=== PATIENT | male | born 1940 | race Caucasian/White ===

== ENCOUNTER → 2021-04-09 | Outpatient (CLI) | payer MEDICARE ==
[~2021-04-09] MED LIST: AMLO5 PO; CALCAVITD PO; LISI20 PO; METO25ER PO; METPRE4DP PO; MULVIT PO; Metformin HCl1000 MG PO; Norco 5-325 Ta1 EACH PO; Pravastatin Sod40 MG PO; TORSE20 PO; ULTRA-LIGHT RO1 EACH MC; XARELTO20 MG PO
[2021-04-09 14:01] LABS: Protein, Urine Quantitative <5.0 mg/dL (0.0-11.9)
== END | disposition home or self-care (01) ==
LOC: LAB SHORT 07:30
PROVIDERS: Internal Medicine Nephrology
DX: N18.30 Chronic kidney disease, stage 3 unspecified (principal); D63.1 Anemia in chronic kidney disease; N25.81 Secondary hyperparathyroidism of renal origin; E55.9 Vitamin D deficiency, unspecified; E78.00 Pure hypercholesterolemia, unspecified; E29.1 Testicular hypofunction; D51.8 Other vitamin B12 deficiency anemias; D52.8 Other folate deficiency anemias; D50.9 Iron deficiency anemia, unspecified; R76.9 Abnormal immunological finding in serum, unspecified; R94.5 Abnormal results of liver function studies; R94.6 Abnormal results of thyroid function studies
CPT/HCPCS: 81050; 82043; 82570; 84156

== ENCOUNTER → 2021-05-17 | Outpatient (CLI) | payer MEDICARE | END | disposition home or self-care (01) | LOC: LAB 12:53 → LAB SHORT 12:53 | DX: L57.0 Actinic keratosis (principal) | CPT/HCPCS: 88305 ==

== ENCOUNTER → 2021-06-24 | Outpatient (CLI) | payer MEDICARE | END | disposition home or self-care (01) | LOC: LAB SHORT 12:09 | DX: C44.41 Basal cell carcinoma of skin of scalp and neck (principal) | CPT/HCPCS: 88305 ==

== ENCOUNTER → 2021-08-10 | Outpatient (CLI) | payer MEDICARE | LOC: LAB 07:35 → LAB SHORT 07:35 | DX: C44.41 Basal cell carcinoma of skin of scalp and neck (principal) | CPT/HCPCS: 88305 ==

== ENCOUNTER → 2022-12-09 | Outpatient (CLI) | payer OTHER ==
[2022-12-13 16:11] LABS: A/G RATIO 1.4 (0.7-1.7); ALPHA-1-GLOBULIN 0.2 g/dL (0.0-0.4); ALPHA-2-GLOBULIN 0.7 g/dL (0.4-1.0); GAMMA GLOBULIN 0.9 g/dL (0.4-1.8); GLOBULIN, TOTAL 2.9 g/dL (2.2-3.9); IMMUNOFIXATION RESULT, SERUM Comment: (.); IMMUNOGLOBULIN A, QN, SERUM 181 mg/dL (61-437); IMMUNOGLOBULIN G, QN, SERUM 965 mg/dL (603-1613); IMMUNOGLOBULIN M, QN, SERUM 125 mg/dL (15-143); M-SPIKE Comment: g/dL (Not Observed); PROTEIN, TOTAL, SERUM 6.9 g/dL (6.0-8.5)
== END | disposition home or self-care (01) ==
LOC: LAB SHORT 16:59 → LAB 16:59
PROVIDERS: Internal Medicine Hematology & Oncology
DX: D47.2 Monoclonal gammopathy (principal)
CPT/HCPCS: 82784; 84165; 86334

== ENCOUNTER → 2024-09-27 | Outpatient (CLI) | payer MEDICARE ==
[2024-09-27 15:06] LABS: Protein, Urine Quantitative <5.0 mg/dL (0.0-11.9)
== END | disposition home or self-care (01) ==
LOC: LAB SHORT 11:55 → LAB 11:55
PROVIDERS: Internal Medicine Nephrology
DX: N18.30 Chronic kidney disease, stage 3 unspecified (principal); D63.1 Anemia in chronic kidney disease; N25.81 Secondary hyperparathyroidism of renal origin; E55.9 Vitamin D deficiency, unspecified; E29.1 Testicular hypofunction; R76.9 Abnormal immunological finding in serum, unspecified; R94.5 Abnormal results of liver function studies; R94.6 Abnormal results of thyroid function studies
CPT/HCPCS: 81050; 82043; 82570; 84156